=== PATIENT | male | born 1965 | race Caucasian/White ===

== ENCOUNTER → 2017-04-21 | Outpatient (CLI) | payer BC, OTHER ==
[~2017-04-21] MED LIST: CARDIZEM CD180 MG PO; COREG25 MG PO; FLECAINIDE ACET50 M1 PO; HYDROCHLOROTHIA25 M2 PO; INVOKANA300 MG PO; JANUVIA100 MG PO; PREDNISONE50 MG PO; QUINAPRIL 20 MG20 MG PO
== END ==
LOC: RAD 13:55
DX: J45.40 Moderate persistent asthma, uncomplicated (principal); J98.6 Disorders of diaphragm